=== PATIENT | female | born 1975 | race Two or more races ===

== ENCOUNTER 2025-01-05 15:55 | Emergency (ER) | payer MEDICARE, MEDICAID ==
[~2025-01-05] VITALS: Ht 172.7 cm; Wt 79.4 kg
[2025-01-05 16:09] VITALS: BP 126/80; TEMP 98.4
[2025-01-05] MEDS ORDERED: LORAZEPAM 1 MG TABLET ONE (16:35)
[2025-01-05] MEDS: LORAZEPAM 1 MG TABLET PO ONE (16:38)
[2025-01-05 17:05] VITALS: O2SAT 99
== END 2025-01-05 17:16 | disposition home or self-care (01) ==
LOC: ER 16:00
DX: F41.1 Generalized anxiety disorder (principal); Z76.0 Encounter for issue of repeat prescription; R56.9 Unspecified convulsions